=== PATIENT | female | born 1990 | race Caucasian/White ===

== ENCOUNTER 2016-10-06 20:24 | Observation (INO) | payer OTHER ==
[~2016-10-06] VITALS: Ht 165.1 cm; Wt 99.7 kg
[2016-10-06 21:28] LABS: HEMATOCRIT 41.7 % (36.0-46.0); MCH 30.1 PG (29.0-34.0); MCHC 34.1 G/DL (30.0-36.0); MCV 88.5 FL (83-99); MEAN PLAT.VOLUME 10.2 uM^3 (9.5-12.4); PLATELET COUNT 243 K/uL (156-360); RBC DIS.WIDTH-SD 39.8 % (39-53); RED BLOOD COUNT 4.71 M/uL (3.80-5.20); WHITE BLOOD COUNT 10.2 K/uL (4.1-10.2)
[2016-10-06 21:42] LABS: CHLORIDE 103 mEq/L (99-109); POTASSIUM 3.4 mEq/L (3.7-5.4); SODIUM 142 mEq/L (136-147)
[2016-10-06 21:44] LABS: GLUCOSE 93 mg/dL (70-99)
[2016-10-06 21:45] LABS: ANION GAP 12 MEQ/L (2-14)
[2016-10-06 21:46] LABS: TOTAL BILIRUBIN 0.6 mg/dL (0.0-1.0)
[2016-10-06 21:47] LABS: ALKALINE PHOSPHATASE 88 IU/L (3-129)
[2016-10-06 21:48] LABS: GFR ESTIMATE (CALCULATED) > 59 mL/min/
[2016-10-06 21:49] LABS: UREA NITROGEN (BUN) 12 mg/dL (9-23)
[2016-10-06 21:54] LABS: TROP-I INTERPRETATION NEGATIVE; TROPONIN-I < 0.01 ng/mL (0.0-0.30)
[2016-10-06 21:55] LABS: CREATINE KINASE 117 IU/L (1-294); TOTAL CK 117 IU/L (1-294)
[2016-10-06 21:56] LABS: QUANTITATIVE HCG < 4.0 MIU/ML
[2016-10-06 21:58] LABS: CK-MB 0.9 ng/mL (0.0-4.9)
[2016-10-06 22:10] LABS: D-DIMER ELISA 0.35 mg/L FEU (< 0.57); PROTHROMBIN TIME 10.4 (9.2-11.2); PTT 22.6 (25-32)
[2016-10-06] MEDS ORDERED: ADVIL,NUPRIN,M200 MG PO (23:26)
[2016-10-06] MEDS ORDERED: MICROGESTIN 241 EACH PO (23:26)
[2016-10-06 23:39] LABS: ADD MIUA? YES; BILIRUBIN NEGATIVE; BLOOD SMALL; COLOR YELLOW ((YELLOW)); GLUCOSE (STRIP) NEGATIVE; KETONES NEGATIVE; LEUKOCYTES SMALL; NITRITE NEGATIVE; PROTEIN (STRIP) NEGATIVE; UROBILINOGEN 0.2 MG/DL (0.2-1.0)
[2016-10-06 23:59] LABS: BACTERIA RARE /HPF; EPITHELIAL CELLS 2+ /HPF; HYALINE CASTS 0-5 /LPF; MUCUS TRACE /LPF; RED BLOOD CELLS 0-5 /HPF (0-5); UCUL ADDED? NO
[2016-10-07 02:57] LABS: SAMPLE HEMOLYSIS CHECK 0; SAMPLE ICTERIC CHECK 0; SAMPLE LIPEMIA CHECK 0; SERUM ETHYL ALCOHOL 17 mg/dL
[2016-10-07 03:19] VITALS: BP 130/62
[2016-10-07 04:16] VITALS: BP 116/70; BP 125/58; BP 130/63
[2016-10-07 04:52] LABS: TROP-I INTERPRETATION NEGATIVE; TROPONIN-I < 0.01 ng/mL (0.0-0.30)
[2016-10-07 08:33] VITALS: BP 123/68
[2016-10-07 11:07] LABS: TROP-I INTERPRETATION NEGATIVE; TROPONIN-I < 0.01 ng/mL (0.0-0.30)
== END 2016-10-07 12:52 | disposition home or self-care (01) ==
LOC: EME 20:24 → EDOF 10-07 01:55 → 5WEST 10-07 01:55
PROVIDERS: Emergency Medicine; Physician Assistant Medical
DX: R55 Syncope and collapse (principal); R07.9 Chest pain, unspecified; R00.2 Palpitations; R06.02 Shortness of breath; Z88.0 Allergy status to penicillin; Z88.1 Allergy status to other antibiotic agents; E66.9 Obesity, unspecified; Z68.36 Body mass index [BMI] 36.0-36.9, adult
CPT/HCPCS: 71010; 80053; 80306 90; 81003; 82550; 82553; 84443; 84484; 84702; 85027; 85379; 85610; 85730; 93005; 93306; 99281; 99285; G0378; G0480; J1650; J7030